=== PATIENT | female | born 1975 | race Caucasian/White ===

== ENCOUNTER 2019-03-11 08:21 | Emergency (ER) | payer MEDICARE ==
[2019-03-11] MEDS ORDERED: Sodium Chloride 0.9% 1,000 ML IV SCH (08:45)
--- NOTE | 2019-03-11 08:45 | EDM.PDOC ---
ED HPI GENERAL MEDICAL PROBLEM - General Chief Complaint: Neuro Symptoms/Deficits Stated Complaint: STROKE SYMPTOMS Time Seen by Provider: 03/11/19 08:40 Source of Information: Reports: Patient, Family (spouse) History Limitations: Reports: No Limitations - History of Present Illness INITIAL COMMENTS - FREE TEXT/NARRATIVE: 44-year-old female attends the ED in the accompaniment of her . 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 She got up early this morning with him as per usual. Approximately 0700 hrs. central standard time she seemed to exhibit increased fracture of her right upper extremity with confusion and disorientation. He states that she gets intermittent seizures but no seizure ensued as he anticipated. Symptoms persisted and therefore concern for recurrent stroke affecting the right side identified. 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 Is felt that this was secondary to plaque dislodgment likely out of the carotid artery. His known severe generalized atherosclerosis with peripheral vascular disease from cigarette smoking. She had to have femoral stents placed bilaterally. She continues to use a walking cast brace to protect her right foot as it is hypersensitive i.e. reflex synthetic dystrophy and does still get intermittent ulcerations which seemed to heal. She has noted a small hole in her heart probably need to septal defect but the is not sure. She was seen at the [facility] and it was felt that a hole in her heart was too small to cause her CVA. It was therefore not treated. Patient's blood pressure is 135/73 with a heart rate sinus at 74 sets of 100% on room air. The answers most of the questions in regard to her past history. She does cooperate with examination. She tends to remain quite quiet and answers only a few questions. Speech is minimally dysarthric. When he got her out of the truck she could not walk or move volition which she usually does. She required him to assist her into the ED. Seems to be weak on the right side. Patient is on Plavix, aspirin and I believe Eliquis. Plavix because of stenting in both femoral arteries. Onset: Today Onset Date: 03/11/19 Onset Time: 06:00 (Nonstandard time.) Duration: Hour(s):, Constant Location: Reports: Upper Extremity, Right (Weakness weakness), Lower Extremity, Right Quality: Reports: Other (Denies any pain) Severity: Moderate Improves with: Reports: None Worsens with: Reports: None Context: Denies: Activity, Exercise, Lifting, Sick Contact, Trauma, Other Headache Pain Score (Numeric/FACES): 6 - Related Data Allergies Allergy/AdvReac Type Severity Reaction Status Date / Time acetaminophen Allergy Itching Verified 03/03/14 14:04 CDT adhesive Allergy Rash Verified 03/03/14 14:04 CDT gabapentin Allergy Change Verified 03/11/19 08:40 Mental Status hydrocodone bitartrate Allergy Itching Verified 03/03/14 14:04 CDT [From Vicodin] melatonin Allergy Itching Verified 03/03/14 14:04 CDT NSAIDS (Non-Steroidal Allergy Itching Verified 03/03/14 14:04 CDT Anti-Inflamma Home Meds: Home Meds Amantadine HCl [Amantadine] 100 mg PO DAILY 03/11/19 [History] Apixaban [Eliquis] 5 mg PO BID 03/11/19 [History] Cyclobenzaprine [Flexeril] 10 mg PO Q12H PRN 03/11/19 [History] LORazepam [Ativan] 0.5 mg PO BID 03/11/19 [History] Pregabalin [Lyrica] 150 mg PO BID 03/11/19 [History] levETIRAcetam [Keppra] 1,000 mg PO BID 03/11/19 [History] Past Medical History Cardiovascular History: Reports: PVD (Severe peripheral vascular disease secondary to cigarette smoking. She still smoking. She had bilateral femoral artery stenting to restore circulation to her lower extremities.) Other Cardiovascular History: Has a small hole in the heart presumably this was an ASD and has been followed up in the [facility]. Was felt not to be the likely source of her CVA as it is too small. It was not felt that it needed definitive repair. Respiratory History: Reports: COPD (Early COPD from continuous cigarette smoking.) Neurological History: Reports: CVA (June 26/2013--cerebrovascular accident with right hemiparesis. It is felt that this was secondary to atherosclerotic plaque disruption. She was found of a small hole in her heart but artificial limb maker felt that it was not large enough to precipitated a clotting mechanism. HEENT at the [facility] in this regard.), Reflex Sympathetic Dystrophy (Rt lwere extremity --post revasculaization of lower extremity with femerol stent. intermittent ulceration formation Rt leg.) Social & Family History - Living Situation & Occupation Living situation: Reports: Occupation: Disabled ED ROS GENERAL - Review of Systems Review Of Systems: See Below Constitutional: Reports: Malaise, Weakness, Fatigue, Decreased Appetite. Denies : Fever, Chills HEENT: Reports: No Symptoms Respiratory: Reports: Cough (Occasional cough.). Denies: Wheezing, Pleuritic Chest Pain Cardiovascular: Denies: Chest Pain, Blood Pressure Problem, Claudication, Dyspnea on Exertion, Edema, Lightheadedness, Orthopnea Endocrine: Reports: Fatigue (Chronic) GI/Abdominal: Reports: Constipation (Occasional positive constipation) : Reports: Other (Appreciated gross hematuria last week in her urine for about a day and a half and then it cleared up. Perhaps very mild dysuria. She is prone to urinary tract infection suggesting she does not empty her bladder completely at times) Musculoskeletal: Reports: Foot Pain (Primarily right foot and leg pain due to reflex sympathetic dystrophy after having femoral stenting on the right side and left side.) Skin: Reports: Other (Occasional ulceration right foot which seems to always heal according to the .) Neurological: Reports: Confusion (Confusion and disorientation today.), Headache , Trouble Speaking (Expressive aphasia.), Difficulty Walking (Increased weakness right upper extremity right lower extremity with difficulty walking compared to her normal this morning. Chronically but worse today.), Weakness. Denies: Numbness, Syncope Psychiatric: Reports: No Symptoms Hematologic/Lymphatic: Reports: Easy Bruising (Being on multiple antiplatelet and antithrombotic agents.) Immunologic: Reports: No Symptoms ED EXAM, NEURO - Physical Exam Exam: See Below Exam Limited By: No Limitations General Appearance: Alert, WD/WN, Anxious (Mildly anxious.), Other (Her answers most questions. She can answer questions but speech is mildly dysarthric. Cannot really say that she has a true expressive aphasia at this time.) Eye Exam: Bilateral Eye: Normal Inspection, PERRL (No gaze palsy) Throat/Mouth: Normal Teeth, Other (Tongue is very dry and shrunken.). No: Normal Lips Head Exam: Atraumatic, Normocephalic Neck: Normal Inspection, Supple, Non-Tender, Full Range of Motion. No: Carotid Bruit, Lymphadenopathy (L), Lymphadenopathy (R) Respiratory/Chest: No Respiratory Distress, Lungs Clear, Normal Breath Sounds, Decreased Breath Sounds, Wheezing. No: Rales, Rhonchi (Breath sounds are mildly decreased in the lower 10% of lung chauhan.) Cardiovascular: Regular Rate, Rhythm, No Edema, No Gallop, No Murmur, No Rub, Other (Peripheral pulses are barely present in the left foot cannot be present in the right side as she is wearing a cast boot brace.). No: Normal Peripheral Pulses (Occasional expiratory wheeze posterior lung chauhan) GI/Abdominal: Normal Bowel Sounds, Soft, Non-Tender, No Abnormal Bruit, No Mass , Other (Abdominal wall appears to be quite warm patient suggesting she has a fever. Repeat temp was 37.6.) Neurological: Alert, CN II-XII Intact, Oriented x 3, Abnormal Finger to Nose ( Ataxic on right-sided testing.), Babinski (Upgoing on the right.). No: Normal Plantar Flexion (Not on the right side), Normal Gait, Normal Reflexes DTR: 2+: Achilles (L), 3+: Bicep (R), Bicep (L), Patella (R), Patella (L) Extremities: Normal Inspection. No: Normal Range of Motion Psychiatric: Anxious Skin Exam: Warm, Dry, Intact, Normal Color, No Rash EKG INTERPRETATION EKG Date: 03/11/19 Time: 08:51 Rhythm: NSR Rate (Beats/Min): 73 [place]: LAD-Left [place] Deviation (-13) P-Wave: Present QRS: Other (There are Q waves in leads II, III, and F aVF compatible with old inferior wall myocardial infarction. There is marked early R-wave transition suggesting right ventricular hypertrophy pattern. There are also Q waves V4 V5 and V6 suggesting apical involvement from an inferior wall infarct.) ST-T: Other (Nonspecific T-wave changes particular noted in lead 2 and aVF flattening in V3, V4 T-wave inversion V5.) QT: (Moderately prolonged at 512.) EKG Interpretation Comments: Abnormal ECG Course - Vital Signs Last Recorded V/S: Last Vital Signs Temp 36.4 C 03/11/19 08:31 Pulse 75 03/11/19 11:05 Resp 16 03/11/19 11:05 BP 119/71 03/11/19 11:05 Pulse Ox 100 03/11/19 11:05 - Orders/Labs/Meds Orders: Active Orders 24 hr Category Date Time Status EKG Documentation Completion [RC] STAT Care 03/11/19 08:42 Active CULTURE BLOOD [BC] Stat Lab 03/11/19 09:08 Received CULTURE BLOOD [BC] Stat Lab 03/11/19 09:57 Received Blood Culture x2 Reflex Set [OM.PC] Stat Oth 03/11/19 08:52 Ordered Labs: Laboratory Tests 03/11/19 03/11/19 03/11/19 Range/Units 08:33 08:33 08:33 WBC 8.41 (3.98-10.04) K/mm3 RBC 4.37 (3.98-5.22) M/mm3 Hgb 10.6 L (11.2-15.7) gm/L Hct 35.0 (34.1-44.9) % MCV 80.1 (79.4-94.8) fl MCH 24.3 L (25.6-32.2) pg MCHC 30.3 L (32.2-35.5) g/dl RDW Std Deviation 59.9 H (36.4-46.3) fL Plt Count 521 H (182-369) K/mm3 MPV 10.8 (9.4-12.3) fl Neutrophils % (Manual) 58 (40-60) % Band Neutrophils % 0 (0-10) % Lymphocytes % (Manual) 33 (20-40) % Atypical Lymphs % 0 % Monocytes % (Manual) 8 (2-10) % Eosinophils % (Manual) 0 L (0.7-5.8) % Basophils % (Manual) 1 (0.1-1.2) Platelet Estimate Increased Anisocytosis 2+ moderate Macrocytosis 2+ moderate Spherocytes 1+ slight Target Cells 1+ slight RBC Morph Comment Abnormal PT 10.1 (9.5-12.1) SECONDS INR 0.93 APTT 26 (24-31) SECONDS D-Dimer, Quantitative 0.85 H (0.19-0.50) mg/L Sodium (136-145) mEq/L Potassium (3.5-5.1) mEq/L Chloride (98-107) mEq/L Carbon Dioxide (21-32) mEq/L Anion Gap (5-15) BUN (7-18) mg/dL Creatinine (0.55-1.02) mg/dL Est Cr Clr Drug Dosing Estimated GFR (MDRD) (>60) mL/min BUN/Creatinine Ratio (14-18) Glucose (74-106) mg/dL POC Glucose 96 (70-105) mg/dL Lactic Acid (0.4-2.0) mmol/L Calcium (8.5-10.1) mg/dL Magnesium (1.8-2.4) mg/dl Total Bilirubin (0.2-1.0) mg/dL AST (15-37) U/L ALT (14-59) U/L Alkaline Phosphatase (46-116) U/L C-Reactive Protein (<1.0) mg/dL Total Protein (6.4-8.2) g/dl Albumin (3.4-5.0) g/dl Globulin gm/dL Albumin/Globulin Ratio (1-2) Urine Color (Yellow) Urine Appearance (Clear) Urine pH (5.0-8.0) Ur Specific Orange (1.005-1.030) Urine Protein (Negative) Urine Glucose (UA) (Negative) Urine Ketones (Negative) Urine Occult Blood (Negative) Urine Nitrite (Negative) Urine Bilirubin (Negative) Urine Urobilinogen (0.2-1.0) Ur Leukocyte Esterase (Negative) Urine RBC (0-5) /hpf Urine WBC (0-5) /hpf Ur Epithelial Cells (0-5) /hpf Urine Bacteria (FEW) /hpf Urine Mucus (FEW) /hpf 03/11/19 03/11/19 03/11/19 Range/Units 08:33 09:08 10:55 WBC (3.98-10.04) K/mm3 RBC (3.98-5.22) M/mm3 Hgb (11.2-15.7) gm/L Hct (34.1-44.9) % MCV (79.4-94.8) fl MCH (25.6-32.2) pg MCHC (32.2-35.5) g/dl RDW Std Deviation (36.4-46.3) fL Plt Count (182-369) K/mm3 MPV (9.4-12.3) fl Neutrophils % (Manual) (40-60) % Band Neutrophils % (0-10) % Lymphocytes % (Manual) (20-40) % Atypical Lymphs % % Monocytes % (Manual) (2-10) % Eosinophils % (Manual) (0.7-5.8) % Basophils % (Manual) (0.1-1.2) Platelet Estimate Anisocytosis Macrocytosis Spherocytes Target Cells RBC Morph Comment PT (9.5-12.1) SECONDS INR APTT (24-31) SECONDS D-Dimer, Quantitative (0.19-0.50) mg/L Sodium 137 (136-145) mEq/L Potassium 4.0 (3.5-5.1) mEq/L Chloride 102 (98-107) mEq/L Carbon Dioxide 24 (21-32) mEq/L Anion Gap 15.0 (5-15) BUN 12 (7-18) mg/dL Creatinine 0.7 (0.55-1.02) mg/dL Est Cr Clr Drug Dosing TNP Estimated GFR (MDRD) > 60 (>60) mL/min BUN/Creatinine Ratio 17.1 (14-18) Glucose 87 (74-106) mg/dL POC Glucose (70-105) mg/dL Lactic Acid 0.7 (0.4-2.0) mmol/L Calcium 8.8 (8.5-10.1) mg/dL Magnesium 1.9 (1.8-2.4) mg/dl Total Bilirubin 0.3 (0.2-1.0) mg/dL AST 22 (15-37) U/L ALT 22 (14-59) U/L Alkaline Phosphatase 108 (46-116) U/L C-Reactive Protein < 0.2 (<1.0) mg/dL Total Protein 8.5 H (6.4-8.2) g/dl Albumin 4.2 (3.4-5.0) g/dl Globulin 4.3 gm/dL Albumin/Globulin Ratio 1.0 (1-2) Urine Color Yellow (Yellow) Urine Appearance Clear (Clear) Urine pH 7.0 (5.0-8.0) Ur Specific Orange 1.010 (1.005-1.030) Urine Protein Negative (Negative) Urine Glucose (UA) Negative (Negative) Urine Ketones Negative (Negative) Urine Occult Blood Negative (Negative) Urine Nitrite Negative (Negative) Urine Bilirubin Negative (Negative) Urine Urobilinogen 0.2 (0.2-1.0) Ur Leukocyte Esterase Negative (Negative) Urine RBC 0-5 (0-5) /hpf Urine WBC 0-5 (0-5) /hpf Ur Epithelial Cells 0-5 (0-5) /hpf Urine Bacteria Not seen (FEW) /hpf Urine Mucus Not seen (FEW) /hpf Meds: Medications Discontinued Medications Generic Name Dose Route Start Last Admin Trade Name Freq PRN Reason Stop Dose Admin Sodium Chloride 1,000 mls @ 100 mls/hr 03/11/19 08:45 03/11/19 08:53 Normal Saline IV 100 mls/hr ASDIRECTED NORMA Administration Sodium Chloride 100 mls @ 75 mls/hr 03/11/19 09:30 03/11/19 09:35 Normal Saline IV 75 mls/hr ASDIRECTED NORMA Administration Iopamidol 100 ml 03/11/19 09:18 03/11/19 09:35 Isovue-370 (76%) IVPUSH 03/11/19 09:19 100 ml ONETIME ONE Administration Sodium Chloride 10 ml 03/11/19 09:18 03/11/19 09:35 Saline Flush FLUSH 10 ml ONETIME PRN Administration IV FLUSH - Radiology Interpretation Free Text/Narrative:: 44-year-old female brought to the emergency department today by her . 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 Rarely fine when she got up this morning. At about 0600 hrs. mom standard time she suddenly developed confusion disorientation starting off into space and identified increased right-sided flexion of her hand and arm. She has had a previous large right sided hemiparesis due to left-sided stroke in 2013. She has not have severe peripheral vascular disease with femoral artery stenting bilaterally done the same year. She continues to smoke cigarettes. Her stroke was felt to be that of a plaque erosion and thrombosis as a cause of her stroke. She required help walking when he got out of the truck this morning which normally she can do on her own. He states her cognitive function seems to be back to normal. She states the sensation in her right arm and leg seemed to be about the same as usual. She has severe weakness on the right side on examination. Very minimal culled fruit packer strength on the right side. Hyperreflexic 3+ to 4 + biceps per [place] 80s and patella reflexes bilaterally. Plan CT of the head since she is on Plavix, aspirin, and Eliquis. - Re-Assessments/Exams Free Text/Narrative Re-Assessment/Exam: 03/11/19 09:00: CT of the brain reveals a well-defined area of encephalomalacia noted within the distribution of the left middle cerebral artery compatible with old infarct. Ex vacuo enlargement is seen with the lateral ventricles as well as sulci in this area. No other abnormal parenchymal densities are noted. No evidence of intracranial hemorrhage or bleeding no midline shift or mass effect is seen. Bone window settings were reviewed which showed visualized mastoid sinuses and paranasal sinuses to be clear. Patient feels somewhat warm to me and therefore she will have a septic workup carried out. She appreciated blood in her urine last week that lasted for a day and a half and then quit. She had a left-sided nosebleed earlier this morning. Will plan on CT angiogram of the head and neck to be carried out to see if we can identify an occlusion although she appears pale maximal medical treatment at this point time and it's unlikely that any intervention would be available to her. 03/11/19 11:07 Labs reveal a normal white count at 8.41 with 58% neutrophils and no band cells reported. Hemoglobin is low at 10.6 with hematocrit of 35.0. MCV is 80.1. Platelet count 521,000 i.e. essential thrombocytosis. PT is 10.1 with an INR of 0.93. PTT is 26. D-dimer is mildly elevated at 0.85. Sodium 137 with a potassium of 4.0. Chloride is 102. Bicarbonate is 24th and anion gap of 15.0. BUN is 12 with a creatinine of 0.7. BUN/creatinine ratio 17.1. Glucose is 87 bedside blood sugar was 96. Lactic acid normal at 0.7. Calcium is 8.8. Magnesium is 1.9. Bilirubin is 0.3. AST is 22 with an ALT of 22. Alk phosphatase normal at 108. C-reactive protein less than 0.2. Total protein slightly high at 8.5 and albumin fraction of 4.2. CT angiogram of the neck vessels revealed no signs of occlusion of the carotids or the vertebral arteries. CT of the brain similarly showed no signs of occlusion of any of the major vessels supplying the brain. Awaiting the results of urinalysis. 03/11/19: 13:30: Patient appears much improved after hydration while in the ED. Her discharge was delayed substantially due to trauma in the ED which took away my ability to care for her for couple of hours. Each is improved she is more bright-eyed and alert. I question whether or not she may have had a complex partial seizure as a cause of her symptomatology. She has a seizure disorder since the stroke. At any rate she was reassured at this time that I cannot find any evidence of a definitive stroke or new stroke. It is also possible that she may have suffered a TIA but the CT angiogram of the head and neck do not reveal any major occlusion or need for intervention. Her and herself are both happy about this. She'll be discharged to home in her 's care. Advised follow up if any further problems occur. Departure - Departure Time of Disposition: 13:19 Disposition: Home, Self-Care 01 Condition: Fair Clinical Impression: Transient ischemic attack (TIA), Complex partial seizure disorder - Discharge Information *PRESCRIPTION DRUG MONITORING PROGRAM REVIEWED*: Not Applicable *COPY OF PRESCRIPTION DRUG MONITORING REPORT IN PATIENT JARRETT: Not Applicable Instructions: Transient Ischemic Attack, [id number] Referrals: Lucas Armijo MD [Primary Care Provider] - Forms: ED Department Discharge Additional Instructions: Evaluation the emergency room this morning in regards to development of right- sided weakness and confusion and trouble speaking while seated beside her while driving his truck. Sternum was for repeat stroke involving the left middle cerebral artery. Previous CVA many years ago leaving her with right- sided arm and leg weakness. You are on maximal anti-platelet and antithrombotic medication with Eliquis, aspirin and Plavix. Therefore immediate concern was possibility of a bleed into your brain to cause her symptoms. CT of the head however did not reveal any bleeding or mass effect inside the brain. There is evidence of a large old stroke involving left temporal parietal lobe in the distribution of the right middle cerebral artery. Nothing new was identified. Because of symptomatology elected to perform a CT Kaila Lofton of the head and neck. This too proved to show all the arteries to be patent with no sign of obstruction with a clot or debris. Therefore I cannot be sure if you had a stroke or transient poor blood supply to the left side of your brain or not. The second concern would be a possible atypical complex seizure which may not cause loss of consciousness but may have caused neurological signs and symptoms. However lab work proved to be normal with no signs of infection and urinalysis was clear. At this time continue all current medications as you have been previously prescribed. Follow-up with neurology or personal physician if any further problems occur. - My Orders Last 24 Hours: My Active Orders 03/11/19 08:42 EKG Documentation Completion [RC] STAT 03/11/19 08:52 Blood Culture x2 Reflex Set [OM.PC] Stat 03/11/19 09:08 CULTURE BLOOD [BC] Stat 03/11/19 09:57 CULTURE BLOOD [BC] Stat - Assessment/Plan Last 24 Hours: My Active Orders 03/11/19 08:42 EKG Documentation Completion [RC] STAT 03/11/19 08:52 Blood Culture x2 Reflex Set [OM.PC] Stat 03/11/19 09:08 CULTURE BLOOD [BC] Stat 03/11/19 09:57 CULTURE BLOOD [BC] Stat
--- NOTE | 2019-03-11 09:13 | CT ---
Head CT Technique: Multiple axial sections through the brain were obtained. Intravenous contrast was not utilized. Comparison: Previous head CT study of 04/14/14 and previous MRI brain of 04/23/14. Findings: Well-defined area of encephalomalacia is noted within the distribution of the left middle cerebral artery compatible with old infarct. Mild ex vacuole enlargement is seen of the lateral ventricles as well as sulci in this area. No other abnormal parenchymal densities are seen. No evidence of intracranial hemorrhage. No midline shift or mass effect is seen. Bone window settings were reviewed which showed visualized mastoid sinuses and paranasal sinuses to appear clear. No acute calvarial abnormality is seen. Impression: 1. Encephalomalacia from old infarct within the distribution of the left middle cerebral artery. 2. No acute intracranial abnormality is identified on noncontrast head CT exam. Diagnostic code #2
[2019-03-11] MEDS ORDERED: Sodium Chloride 0.9% 10 ML Syringe FLUSH PRN (09:18)
[2019-03-11] MEDS ORDERED: Iopamidol 755 Mg/ML 100 ML Bottle IVPUSH ONE (09:18)
[2019-03-11] MEDS ORDERED: Sodium Chloride 0.9% 100 ML IV SCH (09:30)
--- NOTE | 2019-03-11 10:28 | CT ---
CT angiogram of the neck Technique: Multiple axial sections through the neck were obtained. Multiple MIP images were obtained in multiple projections. Findings: Common carotid arteries as well as both internal carotid arteries and proximal external carotid arteries are patent. No dissection or focal occlusion is seen. No focal areas of narrowing are identified. Vertebral vessels are patent. Impression: 1. No abnormality is seen on CT study of the neck. Diagnostic code #1
--- NOTE | 2019-03-11 10:28 | CT ---
CT angiogram of the brain Technique: Multiple axial sections were obtained through the brain. Intravenous contrast was utilized. Multiple MIP images were obtained. Findings: Distal vertebral arteries and basilar artery are patent. Posterior cerebral arteries show no focal occlusion. Both middle cerebral arteries show no focal occlusion. Anterior cerebral arteries also show no definite focal occlusion. No discrete aneurysm is definitely seen. Impression: 1. No abnormality is appreciated on CT angiogram of the brain. Diagnostic code #1
--- NOTE | 2019-03-11 10:28 | CR ---
Chest: Portable view of the chest was obtained. Comparison: No prior chest imaging is available. Heart size and mediastinum are normal. Lungs are clear. Bony structures are unremarkable. Impression: 1. Nothing acute is seen on portable chest x-ray. Diagnostic code #1
== END 2019-03-11 13:41 | disposition home or self-care (01) ==
LOC: JD.ED 08:21
DX: G45.9 Transient cerebral ischemic attack, unspecified (principal); G40.802 Other epilepsy, not intractable, without status epilepticus; J44.9 Chronic obstructive pulmonary disease, unspecified; Z79.899 Other long term (current) drug therapy; Z88.6 Allergy status to analgesic agent; Z91.09 Other allergy status, other than to drugs and biological substances; Z88.8 Allergy status to other drugs, medicaments and biological substances
CPT/HCPCS: 36415; 70450; 70496; 70498; 71045; 80053; 81001; 82962; 83605; 83735; 85007; 85027; 85379; 85610; 85730; 86140; 87040; 93005; 96360; 96361; 99285; J7030; J7040; Q9967; 93010

== ENCOUNTER 2019-10-29 15:16 | Emergency (ER) | payer MEDICARE ==
[2019-10-29] MEDS ORDERED: Sodium Chloride 0.9% 10 ML Syringe FLUSH PRN (15:24)
[2019-10-29] MEDS ORDERED: Lactated Ringers 1,000 ML IV ONE (15:30)
--- NOTE | 2019-10-29 15:49 | EDM.PDOC ---
ED HPI GENERAL MEDICAL PROBLEM - General Chief Complaint: Trauma Stated Complaint: HEAD LAC/FALL Time Seen by Provider: 10/29/19 15:24 Source of Information: Reports: Patient, Family History Limitations: Reports: No Limitations - History of Present Illness INITIAL COMMENTS - FREE TEXT/NARRATIVE: The patient presents with a head injury. Her found her a few minutes ago. She has a history of stroke affecting her right side. She is on 3 blood thinners eliquis, plavix and aspirin. He found her confused and there was lots of blood in the house. She has matted blood to her right head and active bleeding just above the right eye. She has a mild headache. She has no chest pain, shortness of breath, nausea or vomiting. 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 Her is not sure when she may have called. Onset: Gradual Duration: Hour(s): Location: Reports: Head Quality: Reports: Ache Severity: Mild Improves with: Reports: None Worsens with: Reports: None Associated Symptoms: Reports: Headaches. Denies: Chest Pain, Cough, Fever/ Chills, Nausea/Vomiting, Shortness of Breath - Related Data Allergies Allergy/AdvReac Type Severity Reaction Status Date / Time acetaminophen Allergy Itching Verified 03/03/14 14:04 CDT adhesive Allergy Rash Verified 03/03/14 14:04 CDT gabapentin Allergy Change Verified 03/11/19 08:40 Mental Status hydrocodone bitartrate Allergy Itching Verified 03/03/14 14:04 CDT [From Vicodin] melatonin Allergy Itching Verified 03/03/14 14:04 CDT NSAIDS (Non-Steroidal Allergy Itching Verified 03/03/14 14:04 CDT Anti-Inflamma Home Meds: Home Meds Amantadine HCl [Amantadine] 100 mg PO DAILY 03/11/19 [History] Apixaban [Eliquis] 5 mg PO BID 03/11/19 [History] Cyclobenzaprine [Flexeril] 10 mg PO Q12H PRN 03/11/19 [History] LORazepam [Ativan] 0.5 mg PO BID 03/11/19 [History] Pregabalin [Lyrica] 150 mg PO BID 03/11/19 [History] levETIRAcetam [Keppra] 1,000 mg PO BID 03/11/19 [History] Past Medical History Cardiovascular History: Reports: PVD (Severe peripheral vascular disease secondary to cigarette smoking. She still smoking. She had bilateral femoral artery stenting to restore circulation to her lower extremities.) Other Cardiovascular History: Has a small hole in the heart presumably this was an ASD and has been followed up in the [facility]. Was felt not to be the likely source of her CVA as it is too small. It was not felt that it needed definitive repair. Respiratory History: Reports: COPD (Early COPD from continuous cigarette smoking.) Neurological History: Reports: CVA (June 26/2013--cerebrovascular accident with right hemiparesis. It is felt that this was secondary to atherosclerotic plaque disruption. She was found of a small hole in her heart but plasterer stucco felt that it was not large enough to precipitated a clotting mechanism. HEENT at the [facility] in this regard.), Reflex Sympathetic Dystrophy (Rt lwere extremity --post revasculaization of lower extremity with femerol stent. intermittent ulceration formation Rt leg.) - Past Surgical History HEENT Surgical History: Reports: Other (See Below) Other HEENT Surgeries/Procedures: ear surgery GI Surgical History: Reports: Cholecystectomy Female Surgical History: Reports: Hysterectomy Social & Family History - Tobacco Use Smoking Status *Q: Current Every Day Smoker Years of Tobacco use: 5 Packs/Tins Daily: 1 - Caffeine Use Caffeine Use: Reports: None - Recreational Drug Use Recreational Drug Use: No - Living Situation & Occupation Living situation: Reports: Occupation: Disabled Review of Systems - Review of Systems Review Of Systems: See Below Constitutional: Reports: No Symptoms Eyes: Reports: No Symptoms Ears: Reports: No Symptoms Nose: Reports: No Symptoms Mouth/Throat: Reports: No Symptoms Respiratory: Reports: No Symptoms Cardiovascular: Reports: No Symptoms GI/Abdominal: Reports: No Symptoms Genitourinary: Reports: No Symptoms Musculoskeletal: Reports: No Symptoms Skin: Reports: Other (Laceration above the right eye) Neurological: Reports: Headache ED EXAM, GENERAL - Physical Exam Exam: See Below Exam Limited By: No Limitations General Appearance: Alert, No Apparent Distress Eye Exam: Bilateral Eye: EOMI Ears: Normal External Exam Nose: Normal Inspection Head: Other (2cm laceration above the right eye. Right side of her head has matted hair with blood.) Neck: Normal Inspection Respiratory/Chest: No Respiratory Distress, Lungs Clear, Normal Breath Sounds Cardiovascular: Regular Rate, Rhythm, No Edema, No Murmur GI/Abdominal: Soft, Non-Tender, No Organomegaly, No Mass Back Exam: Normal Inspection Extremities: Normal Inspection ED TRAUMA PROCEDURES - Laceration/Wound Repair Right Face Lac/Wound Length In cm: 2 Appearance: Subcutaneous, Linear Anesthetic Type: Local Local Anesthesia - Lidocaine (Xylocaine): 1% with EPI Skin Prep: Saline Exploration/Debridement/Repair: Wound Explored, In a Bloodless Field, Explored to Base Closed With: Sutures Suture Size: 4-0 # of Sutures: 7 Suture Type: Nylon, Interrupted, Simple Tetanus Status Addressed: Yes Complications: No Course - Vital Signs Last Recorded V/S: Last Vital Signs Temp 95.1 F L 10/29/19 15:38 Pulse 86 10/29/19 15:38 Resp 18 10/29/19 15:38 BP 101/88 10/29/19 15:38 Pulse Ox 91 L 10/29/19 15:38 - Orders/Labs/Meds Orders: Active Orders 24 hr Category Date Time Status Cardiac Monitoring [RC] . DIRECTED Care 10/29/19 15:24 Active Peripheral IV Care [RC] . DIRECTED Care 10/29/19 15:25 Active TYPE AND SCREEN [BBK] Stat Lab 10/29/19 15:49 Ordered Lactated Ringers [Ringers, Lactated] 1,000 ml Med 10/29/19 16:45 Active IV ASDIRECTED Sodium Chloride 0.9% [Saline Flush] Med 10/29/19 15:24 Active 10 ml FLUSH ASDIRECTED PRN Peripheral IV Insertion Adult [OM.PC] Stat Oth 10/29/19 15:24 Ordered Medication Orders Lactated Ringer's (Ringers, Lactated) 1,000 mls @ 150 mls/hr IV ASDIRECTED NORMA Last Admin: 10/29/19 16:49 Dose: 150 mls/hr Sodium Chloride (Saline Flush) 10 ml FLUSH ASDIRECTED PRN PRN Reason: Keep Vein Open Labs: Laboratory Tests 10/29/19 10/29/19 10/29/19 Range/Units 15:30 15:30 15:30 WBC 7.06 (3.98-10.04) K/mm3 RBC 4.05 (3.98-5.22) M/mm3 Hgb 11.4 (11.2-15.7) gm/dl Hct 38.2 (34.1-44.9) % MCV 94.3 D (79.4-94.8) fl MCH 28.1 (25.6-32.2) pg MCHC 29.8 L (32.2-35.5) g/dl RDW Std Deviation TNP Plt Count 362 D (182-369) K/mm3 MPV 9.8 (9.4-12.3) fl Neut % (Auto) 64.7 (34.0-71.1) % Lymph % (Auto) 27.5 (19.3-51.7) % Kaufman % (Auto) 5.0 (4.7-12.5) % Eos % (Auto) 2.0 (0.7-5.8) Baso % (Auto) 0.7 (0.1-1.2) % Neut # (Auto) 4.57 (1.56-6.13) K/mm3 Lymph # (Auto) 1.94 (1.18-3.74) K/mm3 Kaufman # (Auto) 0.35 (0.24-0.36) K/mm3 Eos # (Auto) 0.14 (0.04-0.36) K/mm3 Baso # (Auto) 0.05 (0.01-0.08) K/mm3 Manual Slide Review Abnormal smear PT 10.6 (9.7-12.0) SECONDS INR 0.97 APTT 23 D (22-31) SECONDS Sodium 143 (136-145) mEq/L Potassium 3.6 (3.5-5.1) mEq/L Chloride 109 H (98-107) mEq/L Carbon Dioxide 17 L (21-32) mEq/L Anion Gap 20.6 H (5-15) BUN 13 (7-18) mg/dL Creatinine 0.8 (0.55-1.02) mg/dL Est Cr Clr Drug Dosing 84.88 mL/min Estimated GFR (MDRD) > 60 (>60) mL/min BUN/Creatinine Ratio 16.3 (14-18) Glucose 126 H (74-106) mg/dL Calcium 8.3 L (8.5-10.1) mg/dL Total Bilirubin 0.2 (0.2-1.0) mg/dL AST 16 (15-37) U/L ALT 27 (14-59) U/L Alkaline Phosphatase 95 (46-116) U/L Total Protein 6.8 (6.4-8.2) g/dl Albumin 3.4 (3.4-5.0) g/dl Globulin 3.4 gm/dL Albumin/Globulin Ratio 1.0 (1-2) Meds: Medications Generic Name Dose Route Start Last Admin Trade Name Freq PRN Reason Stop Dose Admin Lactated Ringer's 1,000 mls @ 150 mls/hr 10/29/19 16:45 10/29/19 16:49 Ringers, Lactated IV 150 mls/hr ASDIRECTED NORMA Administration Sodium Chloride 10 ml 10/29/19 15:24 Saline Flush FLUSH ASDIRECTED PRN Keep Vein Open Discontinued Medications Generic Name Dose Route Start Last Admin Trade Name Freq PRN Reason Stop Dose Admin Hydromorphone HCl 0.25 mg 10/29/19 16:25 10/29/19 16:50 Dilaudid IVPUSH 10/29/19 16:26 0.25 mg ONETIME ONE Administration Lactated Ringer's 1,000 mls @ 999 mls/hr 10/29/19 15:30 10/29/19 16:13 Ringers, Lactated IV 10/29/19 16:30 999 mls/hr .BOLUS ONE Administration Lidocaine/Epinephrine 20 ml 10/29/19 16:25 10/29/19 16:49 Xylocaine 1% With Epinephrine 1:100,000 INJECT 10/29/19 16:26 20 ml ONETIME ONE Administration - Re-Assessments/Exams Free Text/Narrative Re-Assessment/Exam: 10/29/19 15:49 I ordered an IV LR bolus of 1L, labs, CT of her head and cervical spine. 10/29/19 19:02 Her CBC looks good. Her anion gap is elevated at 10.6. Her PT, INR and PTT look good. Her CT of her head shows scalp injury, old left sided infarct, and no acute intracranial abnormality is identified. The CT of her cervical spine shows degenerative change. Nothing acute is appreciated on CT study of the cervical spine. I closed the wound. Her BP was low earlier and I gave her a liter bolus of LR. I then ran it for 150mls/hr after. Departure - Departure Time of Disposition: 19:10 Disposition: Home, Self-Care 01 Condition: Good Clinical Impression: Fall Qualifiers: Encounter type: initial encounter Qualified Code(s): W19.XXXA - Unspecified fall, initial encounter Laceration of forehead Qualifiers: Encounter type: initial encounter Qualified Code(s): S01.81XA - Laceration without foreign body of other part of head, initial encounter - Discharge Information *PRESCRIPTION DRUG MONITORING PROGRAM REVIEWED*: Not Applicable *COPY OF PRESCRIPTION DRUG MONITORING REPORT IN PATIENT JARRETT: Not Applicable Referrals: Lucas Armijo MD [Primary Care Provider] - 1 Week Forms: ED Department Discharge Additional Instructions: Take your medications as prescribed. Clean the wound with warm soapy water 2 times per day and apply antibiotic ointment after. Have the sutures removed in 1 week. Look for any signs of infection such as redness, swelling, pain or discharge. If you see any of these signs, please return. You may need oral antibiotics. Sepsis Event Note - Evaluation Sepsis Screening Result: No Definite Risk - Focused Exam Vital Signs: Vital Signs Temp Pulse Resp BP Pulse Ox 10/29/19 15:38 95.1 F L 86 18 101/88 91 L Date Exam was Performed: 10/29/19 Time Exam was Performed: 19:01 - My Orders Last 24 Hours: My Active Orders 10/29/19 15:24 Cardiac Monitoring [RC] . DIRECTED Sodium Chloride 0.9% [Saline Flush] 10 ml FLUSH ASDIRECTED PRN Peripheral IV Insertion Adult [OM.PC] Stat 10/29/19 15:25 Peripheral IV Care [RC] . DIRECTED 10/29/19 15:49 TYPE AND SCREEN [BBK] Stat 10/29/19 16:45 Lactated Ringers [Ringers, Lactated] 1,000 ml IV ASDIRECTED - Assessment/Plan Last 24 Hours: My Active Orders 10/29/19 15:24 Cardiac Monitoring [RC] . DIRECTED Sodium Chloride 0.9% [Saline Flush] 10 ml FLUSH ASDIRECTED PRN Peripheral IV Insertion Adult [OM.PC] Stat 10/29/19 15:25 Peripheral IV Care [RC] . DIRECTED 10/29/19 15:49 TYPE AND SCREEN [BBK] Stat 10/29/19 16:45 Lactated Ringers [Ringers, Lactated] 1,000 ml IV ASDIRECTED
[2019-10-29] MEDS ORDERED: Lidocaine 1% with EPINEPHrine 1:100,000 20 ML MDV INJECT ONE (16:25)
[2019-10-29] MEDS ORDERED: HYDROmorphone 0.5 MG/0.5 ML Syringe IVPUSH ONE (16:25)
--- NOTE | 2019-10-29 16:33 | CT ---
CT cervical spine Technique: Multiple axial sections were obtained from above C1 inferiorly to below T2 vertebral body. Reconstructed sagittal and coronal images were obtained. Findings: Mild disc space narrowing at C3-4. Moderate disc space narrowing at C4-5, severe disc space narrowing at C5-6 and C6-7. Posterior osteophytes are seen at C4-5 through C6-7. Anterior osteophytes are seen at the same levels. Abnormal cervical curvature is seen believed to be degenerative in etiology. Minimal bilateral neural foraminal stenosis is noted at C5-6. Mild bilateral neural foraminal stenosis is noted at C6 6 7. Other neural foramina are patent. No bony central canal stenosis is seen. No cervical spine fracture is seen. No acute subluxation is seen. Impression: 1. Degenerative change as noted above. 2. Nothing acute is appreciated on CT study of the cervical spine. Diagnostic code #2 This report was dictated in [place] Standard Time
--- NOTE | 2019-10-29 16:33 | CT ---
Head CT Technique: Multiple axial sections through the brain were obtained. Intravenous contrast was not utilized. Comparison: Prior head CT study of 03/11/19. Findings: Encephalomalacia is noted within the distribution of the left middle cerebral artery territory compatible with old infarct. Enlarged sulci over the area of infarct is seen which is not unexpected. Ventricles along with basal cisterns and sulci over the convexities are otherwise normal. No acute parenchymal densities are seen. No evidence of intracranial hemorrhage. No midline shift or mass-effect is seen. Scalp injury is identified on the right side. No acute calvarial abnormality is appreciated. Visualized mastoid sinuses and paranasal sinuses are clear. No acute calvarial abnormality is seen. Impression: 1. Scalp injury. 2. Old left-sided infarct. 3. No acute intracranial abnormality is identified. Diagnostic code #2 This report was dictated in [place] Standard Time
[2019-10-29] MEDS ORDERED: Lactated Ringers 1,000 ML IV SCH (16:45)
== END 2019-10-29 19:40 | disposition home or self-care (01) ==
LOC: JD.ED 15:16 → SUPCPDRO 15:16 → JD.ED 19:40
DX: S01.81XA Laceration without foreign body of other part of head, initial encounter (principal); J44.9 Chronic obstructive pulmonary disease, unspecified; I69.351 Hemiplegia and hemiparesis following cerebral infarction affecting right dominant side; F17.210 Nicotine dependence, cigarettes, uncomplicated; R56.9 Unspecified convulsions; Z88.6 Allergy status to analgesic agent; Z88.8 Allergy status to other drugs, medicaments and biological substances; Z91.048 Other nonmedicinal substance allergy status; Z79.01 Long term (current) use of anticoagulants; Z79.82 Long term (current) use of aspirin; Z79.02 Long term (current) use of antithrombotics/antiplatelets; Z88.5 Allergy status to narcotic agent; Z79.899 Other long term (current) drug therapy; W19.XXXA Unspecified fall, initial encounter; Y92.009 Unspecified place in unspecified non-institutional (private) residence as the place of occurrence of the external cause
CPT/HCPCS: 12011; 36415; 70450; 72125; 80053; 85025; 85610; 85730; 86850; 86900; 86901; 96361; 96374; 99284; J1170; J7120